=== PATIENT | female | born 1970 | race Caucasian/White ===

== ENCOUNTER 2016-12-16 08:29 | Emergency (ER) | payer MEDICAID ==
[~2016-12-16] VITALS: Ht 175.3 cm; Wt 145.1 kg
[2016-12-16] MEDS ORDERED: SODIUM CHLORIDE 0.9% 1,000 ML IV ONE (09:31)
[2016-12-16] MEDS ORDERED: LIDOCAINE 2%HCL (LOCAL ANESTH.) INJ 20ML MDV ID ONE (09:45)
[2016-12-16 10:25] LABS: Basophils # (auto) 0 uL; Basophils % (auto) 0.4 % (0.0-2.0); Eosinophils # (auto) 0.3 uL; Hemoglobin 12.5 g/dL (12.2-16.2); Lymphocytes # (auto) 1.9 uL; Mean Corpuscular Hemoglobin 25.7 pg (28.0-32.0); Mean Corpuscular Volume 79.7 fL (80.0-100.0); Neutrophils # (auto) 6.5 uL; White Blood Cell 9.5 10^3/uL (4.4-10.8)
[2016-12-16 10:27] LABS: Eosinophils % (auto) 3.1 % (0.0-7.0); Hematocrit 38.7 % (36.0-46.0); Lymphocytes % (auto) 20.2 % (10.0-50.0); Mean Corpuscular Hgb Conc. 32.3 g/dL (32.0-36.0); Monocytes # (auto) 0.7 uL; Monocytes % (auto) 7.9 % (0.0-12.0); Neutrophils % (auto) 68.4 % (37.0-80.0); Platelet Count (auto) 215 10^3/uL (140-450); Red Blood Cells 4.85 10^6/uL (4.0-5.20); Red Cell Distribution Width 15.7 % (11.8-14.3)
[2016-12-16] MEDS ORDERED: NALBUPHINE HCL 10 MG/1ml INJECTION IV ONE (10:30)
[2016-12-16] MEDS ORDERED: PROMETHAZINE HCL 25 MG/ML 1ML IV ONE (10:30)
[2016-12-16 10:43] LABS: Alanine Aminotransferase 15 U/L (13-56); Albumin 3.3 g/dL (3.4-5.0); Alkaline Phosphatase 87 U/L (45-117); Anion Gap 9 (5-15); Aspartate Aminotransferase 12 U/L (15-37); BUN/Creatinine Ratio 14.1; Bilirubin, Total 0.4 mg/dL (0.2-1.0); Blood Urea Nitrogen 10 mg/dL (7-18); Calcium 8.6 mg/dL (8.5-10.1); Carbon Dioxide 24 mmol/L (21-32); Chloride 105 mmol/L (98-107); GFR African American 114 mL/min; GFR Non-African American 95 mL/min; Glucose 89 mg/dL (74-106); Magnesium 2.3 mg/dL (1.6-2.6); Sodium 138 mmol/L (136-145); Total Protein 6.9 g/dL (6.4-8.2)
[2016-12-16 12:04] VITALS: BP 151/85
== END 2016-12-16 12:44 | disposition home or self-care (01) ==
LOC: ER 08:29
DX: K64.5 Perianal venous thrombosis (principal); R07.9 Chest pain, unspecified; R11.2 Nausea with vomiting, unspecified; I11.0 Hypertensive heart disease with heart failure; I50.9 Heart failure, unspecified; M19.90 Unspecified osteoarthritis, unspecified site; G43.909 Migraine, unspecified, not intractable, without status migrainosus; E66.01 Morbid (severe) obesity due to excess calories; Z68.42 Body mass index [BMI] 45.0-49.9, adult
CPT/HCPCS: 36415; 46083; 80053; 83735; 84443; 84484; 85025; 93005; 96361; 96374; 96375; 99285; J2300; J2550; J7030

== ENCOUNTER 2017-02-25 17:28 | Emergency (ER) | payer MEDICAID ==
[~2017-02-25] VITALS: Ht 177.8 cm; Wt 144.7 kg
[2017-02-25 18:55] LABS: Eosinophils # (auto) 0.3 uL; Lymphocytes % (auto) 10.8 % (10.0-50.0); Neutrophils # (auto) 7.5 uL; Red Cell Distribution Width 15.5 % (11.8-14.3)
[2017-02-25 18:56] LABS: Basophils # (auto) 0 uL; Basophils % (auto) 0.4 % (0.0-2.0); Hemoglobin 12.8 g/dL (12.2-16.2); Mean Corpuscular Hemoglobin 26.2 pg (28.0-32.0); Mean Corpuscular Hgb Conc. 32.7 g/dL (32.0-36.0); Mean Corpuscular Volume 80.2 fL (80.0-100.0); Monocytes # (auto) 0.7 uL; Neutrophils % (auto) 78.8 % (37.0-80.0); Nucleated Red Blood Cells % 0.1 %; Platelet Count (auto) 226 10^3/uL (140-450); Red Blood Cells 4.87 10^6/uL (4.0-5.20); White Blood Cell 9.5 10^3/uL (4.4-10.8)
[2017-02-25 19:12] LABS: Albumin 3.6 g/dL (3.4-5.0); BUN/Creatinine Ratio 15.2; Calcium 8.4 mg/dL (8.5-10.1)
[2017-02-25 19:16] LABS: Bilirubin, Total 0.2 mg/dL (0.2-1.0); Total Protein 7.1 g/dL (6.4-8.2)
[2017-02-25 23:30] VITALS: BP 137/88
== END 2017-02-26 00:04 | disposition home or self-care (01) ==
LOC: ER 17:28
DX: J20.9 Acute bronchitis, unspecified (principal); I50.9 Heart failure, unspecified; I11.0 Hypertensive heart disease with heart failure
CPT/HCPCS: 36415; 71046; 80053; 84484; 85025; 93005